=== PATIENT | male | born 1990 | race Caucasian/White ===

== ENCOUNTER 2018-11-08 03:09 | Inpatient (IN) | payer MEDICAID, OTHER, SELFPAY ==
[~2018-11-08] VITALS: Ht 185.4 cm; Wt 89.9 kg
[2018-11-08 04:18] LABS: AMPHETAMINES LEVEL URINE NEGATIVE (NEGATIVE); BARBITURATES URINE NEGATIVE (NEGATIVE); BENZODIAZEPINES URINE NEGATIVE (NEGATIVE); CANNABINOIDS URINE NEGATIVE (NEGATIVE); COCAINE METABOLITE URINE NEGATIVE (NEGATIVE); METHADONE URINE NEGATIVE (NEGATIVE); OPIATES URINE NEGATIVE (NEGATIVE); PHENCYCLIDINE URINE NEGATIVE (NEGATIVE)
[2018-11-08 04:20] LABS: HEMOGLOBIN 14.7 g/dl (13.5-17.5); MEAN CORPUSCULAR HEMOGLOBIN 33.5 pg (27.0-33.0); MEAN CORPUSCULAR VOLUME 95.7 fl (80.0-96.0); PLATELET COUNT, AUTOMATED 198 10^3/uL (150-450); RED BLOOD COUNT 4.39 10^6/uL (4.30-6.10); WHITE BLOOD COUNT 5.9 10^3/uL (4.0-10.0)
[2018-11-08 04:54] LABS: ACETAMINOPHEN LEVEL < 2.0 UG/ML (10.0-30.0); ALBUMIN 4.2 GM/DL (3.2-5.2); ALT/SGPT 46 U/L (12-78); BILIRUBIN,DIRECT 0.1 MG/DL (0.0-0.2); BILIRUBIN,TOTAL 0.3 MG/DL (0.2-1.0); BLOOD UREA NITROGEN 10 MG/DL (7-18); CALCIUM LEVEL 8.9 MG/DL (8.5-10.1); CARBON DIOXIDE LEVEL 28 MEQ/L (21-32); CHLORIDE LEVEL 105 MEQ/L (98-107); CREATININE FOR GFR 0.89 MG/DL (0.70-1.30); ETHYL ALCOHOL (ETHANOL) 0.201 % (0.000-0.010); GLOMERULAR FILTRATION RATE > 60.0 (>60); GLUCOSE, FASTING 103 MG/DL (70-100); SALICYLATE LEVEL < 1.7 MG/DL (5.0-30.0); SODIUM LEVEL 144 MEQ/L (136-145); TOTAL PROTEIN 8.1 GM/DL (6.4-8.2)
[2018-11-08] MEDS ORDERED: MOM 30ML SUSPENSION UDC PO PRN (18:45)
[2018-11-08] MEDS ORDERED: MAALOX 30 ML SUSP *UDC PO PRN (18:45)
[2018-11-08] MEDS ORDERED: ACETAMINOPHEN TAB 650MG DOSE (2X325MG) PO PRN (18:45)
[2018-11-08 19:20] VITALS: BP 150/93
[2018-11-08] MEDS ORDERED: NICOTINE 7 MG/24 HR TRANSDERMAL TD ONE (20:00)
[2018-11-09 06:27] VITALS: BP 140/94
--- NOTE | 2018-11-09 09:59 | HPEPDOC ---
[facility] Medical History & Physical Date of Admission Nov 08, 2018 History and Physical PCP: None ATTENDING: Dr. Lianne Crow HPI: 28 yo M admitted to [facility] for unspecified depressive disorder, being m edically examined today. No acute medical complaints today. Denies any fevers, chills, weakness, fatigue, SERVIN, CP, SOB, cough, palpitations, abdominal pain, N/V/D or changes in bowel or bladder habits. PMHx: Depression Anxiety ADHD History of SI History of alcohol use PSHX: Right hand boxer's fracture Cyst removed from scalp SOCHX: Resides in: [facility] Marital Status: Single Kids: 2 Employment: Unemployed Tobacco use: Vape ETOH: 6 drinks per week Illicit Drugs: States last used cocaine 8 years ago IV Drug Use: Denies Tattoos done unprofessionally: Denies FAMHX: Mother: Alive, well Father: Alive, CAD Siblings: None Children: Alive, well Unexpected deaths due to medical reasons: None. ROS: As noted in HPI, otherwise 11pt ROS of systems reviewed and unremarkable. PE: GEN: 28 yo M, appears stated age. Well-nourished, well developed. No acute distress. Alert and oriented x 3. Pleasant, interactive. HEENT: Normocephalic, atraumatic. Pupils are equal, round, and reactive to lig ht. Extraocular movements are intact. No nystagmus appreciated. Sclera are nonicteric. Conjunctiva without injection. Nose midline. Nasal turbinates without bogginess. EACs both patent BL. TMs both visualized and squires with good cone of light, no bulging or erythema. No facial asymmetry. Moist mucous membranes. Dentition fair. Pharynx pink and moist, no cobblestoning. Neck supple, trachea midline. No lymphadenopathy or thyromegaly appreciated. CHEST: Regular rate and rhythm, +S1, +S2 LUNGS: Clear to auscultation bilaterally. No wheezes, rales, or rhonchi. Breathing appears symmetric and easy. Patient is speaking in full sentences. No accessory muscle use. ABD: Round, soft, non-tender, non-distended. +Bowel sounds throughout. No rebound or guarding. No costovertebral angle tenderness. EXT: Pulses 2+ bilaterally dorsalis pedis and radial. No lower extremity edema appreciated. SKIN: [place], dry, warm. Capillary refill <2sec. No rashes. NEURO: Alert and oriented x 3. Cranial nerves III-XII are intact. No focal defi cits appreciated. EKG: pending A&P: 28 yo M admitted to [facility] for unspecified depressive disorder 1. Psych. Plan per Psychiatry. Obtain baseline EKG to assure the safety of psychiatric medications as they can prolong the QT interval. 2. Nicotine dependence. Patch available. 3. Abnormal TSH. Recheck TFTs in a.m. 4. Follow up. No Primary Care Provider. Will attempt to establish PCP on discharge. 5. Substance use. Management per psychiatry. 6. Staff member Noe present throughout exam. Vital Signs Vital Signs Date Time Temp Pulse Resp B/P (MAP) Pulse Ox O2 Delivery O2 Flow Rate FiO2 11/09/18 06:27 97.7 72 16 140/94 (109) 11/08/18 17:15 97 11/08/18 06:42 Room Air Laboratory Data Labs 24H Item Value Date Time White Blood Count 5.9 10^3/uL 11/08/18 034 Red Blood Count 4.39 10^6/uL 11/08/18 034 Hemoglobin 14.7 g/dl 11/08/18 034 Hematocrit 42.0 % 11/08/18348 Mean Corpuscular Volume 95.7 fl 11/08/18348 Mean Corpuscular Hemoglobin 33.5 pg H 11/08/18 034 Mean Corpuscular Hemoglobin Concent 35.0 g/dl 11/08/18 034 Red Cell Distribution Width 11.8 % 11/08/18348 Platelet Count 198 10^3/uL 11/08/18 034 Nucleated Red Blood Cells % (auto) 0.0 % 11/08/18 034 Sodium Level 144 MEQ/L 11/08/18348 Potassium Level 4.0 MEQ/L 11/08/18 034 Chloride Level 105 MEQ/L 11/08/18 034 Carbon Dioxide Level 28 MEQ/L 11/08/18 034 Anion Gap 11 MEQ/L 11/08/18 034 Blood Urea Nitrogen 10 MG/DL 11/08/18 034 Creatinine 0.89 MG/DL 11/08/18 034 Glomerular Filtration Rate > 60.0 11/08/18 034 Fasting Glucose 103 MG/DL H 11/08/18 034 Calcium Level 8.9 MG/DL 11/08/18348 Total Bilirubin 0.3 MG/DL 11/08/18348 Direct Bilirubin 0.1 MG/DL 11/08/18348 Aspartate Amino Transf (AST/SGOT) 25 U/L 11/08/18348 Alanine Aminotransferase (ALT/SGPT) 46 U/L 11/08/18348 Alkaline Phosphatase 83 U/L 11/08/18348 Total Protein 8.1 GM/DL 11/08/18348 Albumin 4.2 GM/DL 11/08/18348 Albumin/Globulin Ratio 1.08 11/08/18348 Thyroid Stimulating Hormone (TSH) 4.170 uIU/ML H 11/08/18348 Salicylates Level < 1.7 MG/DL L 11/08/18348 Urine Opiates Screen NEGATIVE 11/08/18348 Urine Methadone Screen NEGATIVE 11/08/18348 Acetaminophen Level < 2.0 UG/ML L 11/08/18348 Urine Barbiturates Screen NEGATIVE 11/08/18348 Urine Phencyclidine Screen NEGATIVE 11/08/18348 Urine Amphetamines Screen NEGATIVE 11/08/18348 Urine Benzodiazepines Screen NEGATIVE 11/08/18348 Urine Cocaine Metabolite Screen NEGATIVE 11/08/18348 Urine Cannabinoids Screen NEGATIVE 11/08/18348 Ethyl Alcohol Level 0.201 % H 11/08/18348 Home Medications No Active Prescriptions or Reported Meds Allergies Coded Allergies: Apple (Verified Allergy, Unknown, 11/08/18) Brunilda Hollis Nov 09, 2018 09:59
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
[2018-11-09] MEDS ORDERED: SERTRALINE HCL 25 MG TABLET PO ONE (12:00)
[2018-11-09] MEDS: NICOTINE 14 MG/24 HR TRANSDERMAL TD SCH (12:22)
[2018-11-09 18:00] VITALS: BP 140/86
[2018-11-09] MEDS ORDERED: traZODone 50 MG TAB PO PRN (21:30)
[2018-11-10 06:19] VITALS: BP 147/93
[2018-11-10 07:59] LABS: FREE THYROXINE INDEX 3.2 % (1.4-3.8); THYROID STIMULATING HORMONE 4.18 uIU/ML (0.358-3.740); THYROXINE (T4) 9.3 UG/DL (4.5-12.0)
[2018-11-10] MEDS: SERTRALINE HCL 25 MG TABLET PO SCH (08:08)
[2018-11-10] MEDS: NICOTINE 14 MG/24 HR TRANSDERMAL TD SCH (08:08)
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
--- NOTE | 2018-11-10 12:15 | ECGEPIP ---
Stationary ECG Study [facility] Test Date: 2018-11-09 Pat Name: JENA SOW Department: Room: [place] [address] Gender: M [employer] Manager: fuad : [id number] Requested By: Brunilda Hollis Order Number: [id number] Reading MD: Sergey Oviedo Measurements Intervals [place] Rate: 60 P: 12 UT: 157 QRS: 65 QRSD: 106 T: 30 QT: 398 QTc: 400 Interpretive Statements SINUS RHYTHM Electronically Signed On 11-10-2018 12:12:26 EST by Sergey Oviedo
[2018-11-10 18:00] VITALS: BP 132/82
[2018-11-11 06:06] VITALS: BP 140/90
[2018-11-11] MEDS: SERTRALINE HCL 25 MG TABLET PO SCH (08:33)
[2018-11-11] MEDS: NICOTINE 14 MG/24 HR TRANSDERMAL TD SCH (08:34)
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
[2018-11-11] MEDS ORDERED: SERT25TA PO (09:15)
== END 2018-11-11 12:00 | disposition home or self-care (01) | DRG 754 ==
LOC: M ED 03:09 → M ED INP 18:32 → M PSY 19:20
PROVIDERS: ADMIT Psychiatry & Neurology Psychiatry; ATTEND Psychiatry & Neurology Psychiatry
DX: F32.9 Major depressive disorder, single episode, unspecified (principal); F10.14 Alcohol abuse with alcohol-induced mood disorder; F43.23 Adjustment disorder with mixed anxiety and depressed mood; F17.290 Nicotine dependence, other tobacco product, uncomplicated; F12.10 Cannabis abuse, uncomplicated; Z91.018 Allergy to other foods; Z56.0 Unemployment, unspecified

== ENCOUNTER 2019-07-01 14:05 | Emergency (ER) | payer OTHER ==
[~2019-07-01] VITALS: Ht 185.4 cm; Wt 86.0 kg
[~2019-07-01 14:05] MED LIST: SERT25TA85 PO
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
[2019-07-01 15:40] VITALS: BP 129/91
== END 2019-07-01 15:41 | disposition home or self-care (01) ==
LOC: M ED 14:05
DX: S06.0X0A Concussion without loss of consciousness, initial encounter (principal); V49.50XA Passenger injured in collision with unspecified motor vehicles in traffic accident, initial encounter; F17.210 Nicotine dependence, cigarettes, uncomplicated; Z91.018 Allergy to other foods

== ENCOUNTER → 2019-07-11 | Outpatient (CLI) | payer MEDICAID | LOC: M OUTALCOH 10:16 | PROVIDERS: ATTEND Psychiatry & Neurology Psychiatry | DX: Z03.89 Encounter for observation for other suspected diseases and conditions ruled out (principal) ==

== ENCOUNTER 2019-07-19 15:13 | Outpatient (RCR) | payer MEDICAID | END 2019-07-24 | LOC: M OUTALCOH 15:13 | PROVIDERS: ATTEND Psychiatry & Neurology Psychiatry | DX: Z03.89 Encounter for observation for other suspected diseases and conditions ruled out (principal); F17.200 Nicotine dependence, unspecified, uncomplicated ==

== ENCOUNTER → 2019-08-24 | Outpatient (RCR) | payer MEDICAID | LOC: M OUTALCOH 08-01 13:20 | PROVIDERS: ATTEND Psychiatry & Neurology Psychiatry | DX: F17.200 Nicotine dependence, unspecified, uncomplicated (principal); F10.10 Alcohol abuse, uncomplicated ==

== ENCOUNTER → 2019-09-05 | Outpatient (REF) | payer OTHER ==
[2019-09-05 14:51] LABS: CHOLESTEROL RISK RATIO 4.27 (<5)
== END ==
LOC: M SFHCPLAZ 11:49
PROVIDERS: ATTEND Family Medicine
DX: Z13.220 Encounter for screening for lipoid disorders (principal)

== ENCOUNTER 2019-09-19 10:00 | Outpatient (RCR) | payer MEDICAID | END 2019-09-23 | LOC: M OUTALCOH 10:00 | PROVIDERS: ATTEND Psychiatry & Neurology Psychiatry | DX: F10.10 Alcohol abuse, uncomplicated (principal); F17.200 Nicotine dependence, unspecified, uncomplicated ==

== ENCOUNTER 2019-10-20 09:00 | Outpatient (RCR) | payer MEDICAID | END 2019-10-24 | LOC: M OUTALCOH 09:00 | PROVIDERS: ATTEND Psychiatry & Neurology Psychiatry | DX: F10.10 Alcohol abuse, uncomplicated (principal); F17.200 Nicotine dependence, unspecified, uncomplicated ==

== ENCOUNTER 2019-11-06 14:00 | Outpatient (RCR) | payer MEDICAID | END 2019-11-24 | LOC: M OUTALCOH 14:00 | PROVIDERS: ATTEND Psychiatry & Neurology Addiction Medicine | DX: F10.10 Alcohol abuse, uncomplicated (principal); F17.200 Nicotine dependence, unspecified, uncomplicated ==